=== PATIENT | male | born 1985 | race Caucasian/White ===

== ENCOUNTER 2020-04-21 13:53 | Outpatient (CLI) | payer BC ==
[2020-04-21] MEDS ORDERED: Magnevist 469MG/ML 20 ML VIAL ONE (16:11)
--- NOTE | 2020-04-21 16:32 | MRI ---
MR of the left elbow with and without IV contrast INDICATION: 34-year-old male with left ulnar nerve entrapment with left hand and left finger numbness for 2 months TECHNIQUE: Multiplanar multisequence MR images were obtained of the left elbow with and without IV co ntrast. 20 cc of MultiHance was utilized for the exam. Comparisons are made with a radiograph of the left elbow dated April 02, 2020 FINDINGS: There is marked thickening and increased T2 signal intensity involving the ulnar nerve at the level o f the cubital tunnel as well as proximally within the left forearm. There is also some mild hypertrophy of the left ulnar nerve within the distal left arm. No accessory muscle seen within the c ubital tunnel. There is some marginal osteophytes seen off the medial margin of the posterior elbow joint that projects toward but do not impinge the ulnar nerve. No periarticular ganglion is grossly e vident. No marrow signal abnormality is noted. No joint effusion is present. There is some mild enhancement involving the nerve indicative of some underlying inflammation. Biceps, brachialis and tr iceps insertions are normal appearing. Common flexor common extensor origins are normal appearing. The ulnar collateral, lateral collateral lateral ulnar collateral ligament are intact. No osteochondr al defect is evident. 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
== END 2020-04-21 13:54 | disposition home or self-care (01) ==
LOC: TBSIIMAG 13:53
PROVIDERS: ATTEND Family Medicine
DX: M24.022 Loose body in left elbow (principal); G56.22 Lesion of ulnar nerve, left upper limb
CPT/HCPCS: A9579

== ENCOUNTER 2020-10-06 19:00 | Outpatient (CLI) | payer BC | END 2020-10-06 19:01 | disposition home or self-care (01) | LOC: SLEEPLAB 19:00 | PROVIDERS: ATTEND Hospitalist | DX: G47.33 Obstructive sleep apnea (adult) (pediatric) (principal); R06.83 Snoring; F41.8 Other specified anxiety disorders; G47.00 Insomnia, unspecified; G47.10 Hypersomnia, unspecified | CPT/HCPCS: 95810 ==